=== PATIENT | female | born 1960 | race Caucasian/White ===

== ENCOUNTER → 2019-02-12 19:33 | Outpatient (CLI) | payer BC ==
[2019-02-12 19:58] LABS: BASOPHILS 0.4 % (0-2); EOSINOPHILS 4.1 % (0-7); HEMATOCRIT 33.3 % (36.0-48.0); IMMATURE GRANULOCYTES 0.3 % (0-5); LYMPHOCYTES 20.8 % (15-50); MCH 31.3 pg (26.0-34.0); MCV 94.9 fL (80.0-100.0); MEAN PLATELET VOLUME 11.4 fL (7.4-10.4); MONOCYTES 10.3 % (2-11); NEUTROPHILS 64.1 % (40-80); PLATELET COUNT 175 10x3/uL (130-400); RBC 3.51 10x6/uL (4.00-5.40); RDW 13.5 % (11.5-14.5); WBC 11.3 10x3/uL (4.8-10.8)
[2019-02-12 20:20] LABS: ANION GAP 16.4 mmol/L (8-16); CALCIUM 9.2 mg/dL (8.5-10.1); CREATININE - SERUM 0.9 mg/dL (0.6-1.3); POTASSIUM - SERUM 3.4 mmol/L (3.5-5.1); VANCOMYCIN - TROUGH 17.8 ug/mL (10.0-20.0)
== END | disposition home or self-care (01) ==
LOC: D.LABREF 19:33
PROVIDERS: ATTEND Family Medicine
DX: Q01.9 Encephalocele, unspecified (principal)

== ENCOUNTER → 2019-02-19 16:37 | Outpatient (CLI) | payer BC ==
[~2019-02-19 16:37] MED LIST: EFFEXOR XR150 MG PO; LEVOTHYROXINE125 MCG PO; LIPITOR10 MG PO; LISINOPRIL-HCT1 EAC8 PO; OMEPRAZOLE20 M1 PO
[2019-02-19 17:02] LABS: BASOPHILS 0.7 % (0-2); HEMATOCRIT 34.4 % (36.0-48.0); HEMOGLOBIN 11.3 g/dL (12-16); IMMATURE GRANULOCYTES 0.4 % (0-5); LYMPHOCYTES 16.4 % (15-50); MCHC 32.8 g/dL (31.0-37.0); MCV 94.5 fL (80.0-100.0); MEAN PLATELET VOLUME 10.6 fL (7.4-10.4); MONOCYTES 12.3 % (2-11); NEUTROPHILS 66.2 % (40-80); RBC 3.64 10x6/uL (4.00-5.40); RDW 13.6 % (11.5-14.5); WBC 8.1 10x3/uL (4.8-10.8)
[2019-02-19 17:20] LABS: CREATININE - SERUM 0.9 mg/dL (0.6-1.3); VANCOMYCIN - TROUGH 18.3 ug/mL (10.0-20.0)
[2019-02-19 17:46] LABS: PLATELET COUNT 216 10x3/uL (130-400)
[2019-06-13 06:42] VITALS: BMI 41.1
== END | disposition home or self-care (01) ==
LOC: D.LABREF 16:37
PROVIDERS: ATTEND Family Medicine
DX: Q01.8 Encephalocele of other sites (principal)

== ENCOUNTER → 2019-02-26 17:35 | Outpatient (CLI) | payer BC ==
[2019-02-26 19:49] LABS: HEMATOCRIT 33.9 % (36.0-48.0); HEMOGLOBIN 11.4 g/dL (12-16); MCH 31.3 pg (26.0-34.0); MCHC 33.6 g/dL (31.0-37.0); MCV 93.1 fL (80.0-100.0); MEAN PLATELET VOLUME 10.9 fL (7.4-10.4); RBC 3.64 10x6/uL (4.00-5.40); WBC 3.8 10x3/uL (4.8-10.8)
[2019-02-26 20:02] LABS: CREATININE - SERUM 1.2 mg/dL (0.6-1.3); VANCOMYCIN - TROUGH 23.9 ug/mL (10.0-20.0)
[2019-02-26 20:04] LABS: PLATELET COUNT 170 10x3/uL (130-400)
[2019-02-26 20:19] LABS: EOSINOPHILS 6 % (0-7); LYMPHOCYTES 43 % (15-50); MONOCYTES 12 % (2-11); NEUTROPHILS 39 % (40-80); PLATELET ESTIMATE NORMAL
== END | disposition home or self-care (01) ==
LOC: D.LABREF 17:35
PROVIDERS: ATTEND Family Medicine
DX: T81.40XA Infection following a procedure, unspecified, initial encounter (principal)

== ENCOUNTER → 2019-03-06 12:00 | Outpatient (CLI) | payer BC ==
[2019-03-06 13:13] LABS: BASOPHILS 0.8 % (0-2); EOSINOPHILS 5.2 % (0-7); HEMATOCRIT 34.1 % (36.0-48.0); HEMOGLOBIN 11.6 g/dL (12-16); IMMATURE GRANULOCYTES 0.3 % (0-5); LYMPHOCYTES 10.4 % (15-50); MCH 31.7 pg (26.0-34.0); MCV 93.2 fL (80.0-100.0); MEAN PLATELET VOLUME 10.5 fL (7.4-10.4); MONOCYTES 13.9 % (2-11); NEUTROPHILS 69.4 % (40-80); RBC 3.66 10x6/uL (4.00-5.40); RDW 13.9 % (11.5-14.5); WBC 9.1 10x3/uL (4.8-10.8)
[2019-03-06 13:16] LABS: PLATELET COUNT 352 10x3/uL (130-400)
[2019-03-06 13:26] LABS: ANION GAP 14.8 mmol/L (8-16); CARBON DIOXIDE 26.9 mmol/L (21.0-32.0); CREATININE - SERUM 1.3 mg/dL (0.6-1.3); POTASSIUM - SERUM 3.7 mmol/L (3.5-5.1); VANCOMYCIN - TROUGH 19.5 ug/mL (10.0-20.0)
== END | disposition home or self-care (01) ==
LOC: D.LABREF 12:00
PROVIDERS: ATTEND Family Medicine
DX: Q01.9 Encephalocele, unspecified (principal)

== ENCOUNTER → 2019-03-19 13:45 | Outpatient (CLI) | payer BC ==
[2019-03-19 14:57] LABS: BASOPHILS 0.8 % (0-2); HEMATOCRIT 41.1 % (36.0-48.0); HEMOGLOBIN 13.8 g/dL (12-16); IMMATURE GRANULOCYTES 0.2 % (0-5); MCH 31.9 pg (26.0-34.0); MCHC 33.6 g/dL (31.0-37.0); MCV 94.9 fL (80.0-100.0); MEAN PLATELET VOLUME 10.4 fL (7.4-10.4); MONOCYTES 8.4 % (2-11); NEUTROPHILS 71.6 % (40-80); RBC 4.33 10x6/uL (4.00-5.40); RDW 13.8 % (11.5-14.5); WBC 8.2 10x3/uL (4.8-10.8)
[2019-03-19 15:38] LABS: PLATELET COUNT 433 10x3/uL (130-400)
[2019-03-19 15:47] LABS: ANION GAP 17.3 mmol/L (8-16); CALCIUM 9.2 mg/dL (8.5-10.1); CARBON DIOXIDE 25.3 mmol/L (21.0-32.0); CREATININE - SERUM 1.4 mg/dL (0.6-1.3); POTASSIUM - SERUM 3.6 mmol/L (3.5-5.1)
== END | disposition home or self-care (01) ==
LOC: D.LABREF 13:45
PROVIDERS: ATTEND Family Medicine
DX: Q81.9 Epidermolysis bullosa, unspecified (principal)

== ENCOUNTER 2019-06-13 06:13 | Day surgery (SDC) | payer BC ==
[2019-06-11 09:38] LABS: BASOPHILS 0.8 % (0-2); EOSINOPHILS 2.8 % (0-7); HEMATOCRIT 39.7 % (36.0-48.0); HEMOGLOBIN 13.5 g/dL (12-16); IMMATURE GRANULOCYTES 0.3 % (0-5); MCH 32.1 pg (26.0-34.0); MCV 94.5 fL (80.0-100.0); MEAN PLATELET VOLUME 9.6 fL (7.4-10.4); MONOCYTES 8.6 % (2-11); NEUTROPHILS 64.5 % (40-80); PLATELET COUNT 452 10x3/uL (130-400); RDW 12.7 % (11.5-14.5); WBC 7.1 10x3/uL (4.8-10.8)
[~2019-06-13] VITALS: Ht 175.3 cm; Wt 126.1 kg
[2019-06-13 06:42] VITALS: BP 142/83; Ht 175.3 cm; Wt 126.1 kg
--- NOTE | 2019-06-13 11:39 | NUR ---
PATIENT VERY TEARFUL. VERBALIZES PAIN TOLERABLE "I JUST WANT TO BE WITH MY ". PATIENT WILL BENEFIT FROM ENVIRONMENTAL CHANGE; OK TO D/C TO OUTPATIENT.
--- NOTE | 2019-06-13 13:29 | NUR ---
1245-DISCHARGE CRITERIA MET. REMOVED IV WITH CATH INTACT,DISPOSED INTO SHARPS, COVERED SITE WITH BANDAID. VSS. REVIEWED POST OPERATIVE INSTRUCTIONS WITH PT,VERBALIZED UNDERSTANDING. AWAITING ON SPOUSE FOR TRANSPORTATION. HE LEFT WHEN PT ARRIVED BACK FROM TO LET THEIR DOGS OUT.
--- NOTE | 2019-06-13 13:43 | NUR ---
1338-ESCORTED OUT VIA W/C WITH SPOUSE AWAITING TO DRIVE HOME.
--- NOTE | 2019-06-18 13:13 | OP ---
PATIENT NAME: DWAYNE DYKES MEDICAL RECORD: [id number] :64 LOCATION:D[facility] ADMISSION DATE: SURGEON: FRANKY HURLEY DO DATE OF OPERATION: 06/13/2019 PREOPERATIVE DIAGNOSIS: Thickened endometrium. POSTOPERATIVE DIAGNOSES: Endometrial polyp, cervical polyp, and atrophic endometrium. PRIMARY SURGEON: Franky Hurley DO ANESTHESIA: Estiven Nirav, JAKY PROCEDURE: Hysteroscopy, dilation and curettage, and polypectomy. FINDINGS: Normal appearing external genitalia, normal appearing vaginal vault. Cervix with polyp at the cervical os, removed with polyp forceps. Multiple endometrial polyps noted obscuring view of fallopian tube ostia, otherwise atrophic endometrium. SPECIMENS: Cervical polyp, endometrial polyps, and endometrial curettings. ESTIMATED BLOOD LOSS: 5 cc. IV FLUIDS: 500 cc. URINE OUTPUT: 200 cc clear urine. COMPLICATIONS: None. CONDITION: Stable. DESCRIPTION OF PROCEDURE: The risks, benefits, alternatives and indications of the procedure were discussed with the patient. She voiced understanding of the procedure and signed the consent. She was taken to the OR where general anesthesia was administered and found to be adequate. She was placed in the dorsal lithotomy position. She was prepped and draped in normal sterile fashion. A speculum was placed in the posterior aspect of the vagina and a single tooth tenaculum was used to grasp the anterior lip of the cervix. The cervix was noted to have a polyp at the external cervical os and a polyp forceps was used to remove the polyp and sent to pathology. The bladder was drained with a red rubber catheter. The uterus was sounded to 10 cm. The cervix was dilated to accommodate the hysteroscope. Hysteroscope was inserted into the uterus and multiple endometrial polyps were also noted. Endometrial polyps obscuring the view of bilateral fallopian tube ostia. Otherwise, atrophic endometrium noted. The hysteroscope was removed and the cervix was further dilated to accommodate a sharp curette. Prior to the sharp curettage, polyp forceps were used to remove 2 polyps from the uterus. A gentle sharp curettage was performed to ensure complete removal of endometrial polyps. Endometrial curettings and polyps were sent to pathology. All instruments were removed from the uterus. The tenaculum was removed from the cervix and the tenaculum site was hemostatic. All other instruments were removed from the vagina. All lap, sponge, and instrument counts were correct times 2. The patient tolerated the procedure well. She was awakened and taken to recovery room in stable OPERATIVE REPORT [id number] DWAYNE DYKES condition. TRANSINT:[id number] Voice Confirmation ID: [id number] DOCUMENT ID: [id number] FRANKY HURLEY DO at 1313 CC: [id number] DICTATION DATE: 06/13/19 1115 [facility] HELPER: 06/13/19 1238 [facility] [place] 06/13/[address] [id number]
== END 2019-06-13 13:38 | disposition home or self-care (01) ==
LOC: D.OPS 06:13 → D.PAN 08:15 → D.OPS 08:15
PROVIDERS: ATTEND Student in an Organized Health Care Education/Training Program
DX: R93.89 Abnormal findings on diagnostic imaging of other specified body structures (principal); N84.0 Polyp of corpus uteri; N84.1 Polyp of cervix uteri